=== PATIENT | male | born 1950 | race Caucasian/White ===

== ENCOUNTER → 2016-08-04 | Outpatient (CLI) | payer MEDICARE, OTHER ==
[2016-08-04 09:31] LABS: HEMATOCRIT 43.9 % (37.9-51.0); HEMOGLOBIN 14.5 g/dL (13.5-17.0); HGB HCT DIFFERENCE -0.4; MEAN CORPUSCULAR HEMOGLOBIN 30.6 pg (27.0-33.4); MEAN CORPUSCULAR HGB CONC 32.9 g/dL (32.0-36.0); MEAN CORPUSCULAR VOLUME 93 fl (80-97); RED BLOOD COUNT 4.73 10^6/uL (4.35-5.55); RED CELL DISTRIBUTION WIDTH 13.5 % (11.5-14.0); WHITE BLOOD COUNT 9.4 10^3/uL (4.0-10.5)
[2016-08-04 09:50] LABS: ANION GAP 13 (5-19); BLOOD UREA NITROGEN 17 mg/dL (7-20); CALCIUM 9.2 mg/dL (8.4-10.2); CARBON DIOXIDE 24 mmol/L (22-30); CHLORIDE 107 mmol/L (98-107); CREATININE RESULT 0.97 mg/dL (0.52-1.25); GLUCOSE 105 mg/dL (75-110); POTASSIUM 4.2 mmol/L (3.6-5.0); SODIUM 143.7 mmol/L (137-145)
--- NOTE | 2016-08-04 12:44 | EKG REPORT ---
SEVERITY:- NORMAL ECG - SINUS RHYTHM : Confirmed by: Laura Tejeda MD 04-Aug-2016 12:43:46
== END ==
LOC: OD 08:15
PROVIDERS: ATTEND Urology
DX: Z01.810 Encounter for preprocedural cardiovascular examination (principal); N40.1 Benign prostatic hyperplasia with lower urinary tract symptoms; N13.8 Other obstructive and reflux uropathy
CPT/HCPCS: 36415; 80048; 85027; 93005; 93010

== ENCOUNTER 2016-10-09 21:48 | Emergency (ER) | payer MEDICARE, OTHER ==
--- NOTE | 2016-10-09 22:50 | RADIOLOGY REPORT (SQ) ---
EXAM DESCRIPTION: FINGER LEFT COMPLETED DATE/TIME: 10/09/2016 10:36 pm REASON FOR STUDY: INJURY 4TH FINGER COMPARISON: None. NUMBER OF VIEWS: Three views. TECHNIQUE: AP, lateral, and oblique images acquired of the left fourth finger. LIMITATIONS: None. FINDINGS: MINERALIZATION: Normal. BONES: Mildly displaced fractures through the tuft of the distal phalanx 4th digit left hand. Bones otherwise intact. SOFT TISSUES: Soft tissue swelling. OTHER: No other significant finding. IMPRESSION: TUFT FRACTURE 4TH DIGIT LEFT HAND ABOVE. COMMENT: SITE OF TRAUMA/COMPLAINT MARKED/STAMP COMPLETED: YES. TECHNICAL DOCUMENTATION: JOB ID: [id number] [employer]- All Rights Reserved
--- NOTE | 2016-10-09 23:04 | ER Document Report ---
ED General - General Chief Complaint: Finger Injury Stated Complaint: SWOLLEN FINGER Time Seen by Provider: 10/09/16 22:20 Notes: Patient is a 65-year-old male who presents after he hit his left third finger 3 days ago with a hammer. Since that time he has had a dull, constant aching pain to the distal tip of this digit. He also notes swelling and ecchymosis. He has been applying ice with moderate improvement of the pain. Nothing worsens the pain other than touching the area. No history of similar injuries in the past. He has not seen his primary care doctor regarding today's concerns. Denies any additional injuries. TRAVEL OUTSIDE OF THE [place] IN LAST 30 DAYS: No - Related Data Allergies/Adverse Reactions: oxycodone [Oxycodone] Allergy (Verified 03/19/12 10:32) Past Medical History - General Information source: Patient - Social History Smoking Status: Never Smoker Frequency of alcohol use: None Drug Abuse: None Lives with: Spouse/Significant other Family History: Reviewed & Not Pertinent Patient has suicidal ideation: No Patient has homicidal ideation: No - Past Medical History Cardiac Medical History: Denies: Hx Coronary Artery Disease Pulmonary Medical History: Denies: Hx Tuberculosis Renal/ Medical History: Denies: Hx Peritoneal Dialysis GI Medical History: Reports: Hx Gastroesophageal Reflux Disease Musculoskeltal Medical History: Reports Hx Muscle Spasm - Immunizations Hx Diphtheria, Pertussis, Tetanus Vaccination: No Review of Systems - Review of Systems Notes: Constitutional: Negative for fever. Eyes: Negative for visual changes. ENT: Negative for facial injury Cardiovascular: Negative for chest injury. Respiratory: Negative for shortness of breath. Gastrointestinal: Negative for abdominal injury. Genitourinary: Negative for genital injury Musculoskeletal: Positive for left third finger injury Skin: Negative for laceration/abrasions. Neurological: Negative for head injury. Physical Exam - Vital signs Vitals: Temp Pulse Resp BP Pulse Ox 98.2 F 55 L 18 155/78 H 100 10/09/16 22:00 10/09/16 22:00 10/09/16 22:00 10/09/16 22:00 10/09/16 22:00 Interpretation: Bradycardic Notes: PHYSICAL EXAMINATION: GENERAL: Well-appearing, well-nourished and in no acute distress. HEAD: Atraumatic, normocephalic. EYES: sclera anicteric, conjunctiva are normal. ENT: Moist mucous membranes. NECK: Normal range of motion LUNGS: Normal work of breathing HEART: 2+ radial pulses bilaterally EXTREMITIES: no pitting or edema. No cyanosis. The distal aspect of the left third digit is swollen, ecchymosis over the volar pad and a subungual clotted hematoma. NEUROLOGICAL: No focal neurological deficits. Moves all extremities spontaneously and on command. PSYCH: Normal mood, normal affect. SKIN: Warm, Dry, normal turgor, no rashes or lesions noted. Course - Re-evaluation Re-evalutation: 10/09/16 23:04 Patient presents with swelling and ecchymosis to the distal left third finger. Full flexion and extension at the PIP, DIP, and MCP. Sensation intact. Capillary refill less than 3 seconds. X-ray does demonstrate a tuft fracture of this digit. No additional management indicated. At this time will discharge with return precautions and follow-up recommendations. Verbal discharge instructions given a the bedside and opportunity for questions given. Medication warnings reviewed. Patient is in agreement with this plan and has verbalized understanding of return precautions and the need for primary care follow-up in the next 24-72 hours. - Vital Signs Vital signs: Temp Pulse Resp BP Pulse Ox 98.5 F 57 L 18 133/90 H 97 10/09/16 23:10 10/09/16 23:10 10/09/16 22:00 10/09/16 23:10 10/09/16 23:10 - Diagnostic Test Radiology reviewed: Image reviewed, Reports reviewed Radiology results interpreted by me: 10/09/16 23:02 Left hand x-ray: Tuft fracture of the third digit Discharge - Discharge Clinical Impression: Closed fracture of tuft of distal phalanx of finger Condition: Good Disposition: HOME, SELF-CARE Additional Instructions: You have a very small fracture of your distal phalanx on the third finger of the left hand. This will heal on its own. Continue to ice the area. For your pain: Take ibuprofen 600 mg and acetaminophen 1000 mg every 6 hours together as needed for pain. Return for any additional concerns you may have.
[2016-10-09 23:15] VITALS: BP 133/90
== END 2016-10-09 23:12 | disposition home or self-care (01) ==
LOC: ER 21:48
DX: S62.633A Displaced fracture of distal phalanx of left middle finger, initial encounter for closed fracture (principal); S62.635A Displaced fracture of distal phalanx of left ring finger, initial encounter for closed fracture; W27.8XXA Contact with other nonpowered hand tool, initial encounter; Z88.5 Allergy status to narcotic agent
CPT/HCPCS: 99283

== ENCOUNTER 2018-08-29 13:38 | Emergency (ER) | payer MEDICARE ==
[2018-08-29] MEDS ORDERED: ONDANSETRON 4 MG TAB.RAPDIS PO ONE (14:12)
--- NOTE | 2018-08-29 14:14 | ER Document Report ---
ED Medical Screen (RME) - General Chief Complaint: Abdominal Pain Stated Complaint: ABDOMINAL PAIN Time Seen by Provider: 08/29/18 14:09 Mode of Arrival: Wheelchair Information source: Patient Notes: Patient presents today with complaints of right flank pain. Patient reports that started yesterday he has had some vomiting with it. Denies pain with void. Denies fever denies trauma. Reports history of back spasms but this does not feel the same. Patient reports the severe back pain is making him shaky and nauseated. Right flank nontender to palpate. I have greeted and performed a rapid initial assessment of this patient. A comprehensive ED assessment and evaluation of the patient, analysis of test results and completion of the medical decision making process will be conducted by additional ED providers. Dictation of this chart was performed using voice recognition software; therefore, there may be some unintended grammatical errors. TRAVEL OUTSIDE OF THE [place] IN LAST 30 DAYS: No - Related Data Allergies/Adverse Reactions: oxycodone [Oxycodone] Allergy (Verified 08/29/18 13:56) Past Medical History - Past Medical History Cardiac Medical History: Denies: Hx Coronary Artery Disease Pulmonary Medical History: Denies: Hx Tuberculosis Renal/ Medical History: Denies: Hx Peritoneal Dialysis GI Medical History: Reports: Hx Gastroesophageal Reflux Disease Musculoskeltal Medical History: Reports Hx Muscle Spasm - Immunizations Hx Diphtheria, Pertussis, Tetanus Vaccination: No Physical Exam - Vital signs Vitals: Temp Pulse Resp BP Pulse Ox 97.5 F 72 27 H 121/73 100 08/29/18 14:03 08/29/18 14:03 08/29/18 14:03 08/29/18 14:03 08/29/18 14:03 Course - Vital Signs Vital signs: Temp Pulse Resp BP Pulse Ox 97.5 F 72 27 H 121/73 100 08/29/18 14:03 08/29/18 14:03 08/29/18 14:03 08/29/18 14:03 08/29/18 14:03
[2018-08-29 14:51] LABS: AMORPHOUS SEDIMENT,URINE TRACE /HPF; APPEARANCE,URINE CLOUDY; BILIRUBIN,URINE NEGATIVE (NEGATIVE); COLOR,URINE YELLOW; GLUCOSE, URINE NEGATIVE (NEGATIVE); KETONES,URINE 20 mg/dL (NEGATIVE); LEUKOCYTE ESTERASE,URINE SMALL (NEGATIVE); NITRITE,URINE NEGATIVE (NEGATIVE); PROTEIN,URINE 100 mg/dL (NEGATIVE); URINE SPECIFIC GRAVITY 1.024; UROBILINOGEN,URINE NEGATIVE mg/dL (<2.0)
[2018-08-29 14:57] LABS: ABSOLUTE LYMPHOCYTES (AUTO) 3.3 10^3/uL (0.5-4.7); ABSOLUTE MONOCYTES (AUTO) 0.5 10^3/uL (0.1-1.4); ABSOLUTE NEUT (AUTO) 6.2 10^3/uL (1.7-8.2); BASOPHILS % (AUTO) 0.3 % (0-2); EOSINOPHILS % (AUTO) 0.3 % (0-6); HEMATOCRIT 44.5 % (37.9-51.0); HEMOGLOBIN 15.1 g/dL (13.5-17.0); LYMPHOCYTES % (AUTO) 33.2 % (13-45); MEAN CORPUSCULAR HEMOGLOBIN 30.7 pg (27.0-33.4); MEAN CORPUSCULAR HGB CONC 33.9 g/dL (32.0-36.0); MEAN CORPUSCULAR VOLUME 91 fl (80-97); PLATELET COUNT 185 10^3/uL (150-450); RED BLOOD COUNT 4.91 10^6/uL (4.35-5.55); RED CELL DISTRIBUTION WIDTH 13.5 % (11.5-14.0); SEGMENTED NEUTROPHILS % (AUTO) 61.2 % (42-78); TOTAL CELLS COUNTED % (AUTO) 100 %; WHITE BLOOD COUNT 10.1 10^3/uL (4.0-10.5)
[2018-08-29 15:14] LABS: ALANINE AMINOTRANSFERASE 35 U/L (21-72); ALBUMIN 4.9 g/dL (3.5-5.0); ALKALINE PHOSPHATASE 115 U/L (38-126); ANION GAP 12 (5-19); ASPARTATE AMINO TRANSFERASE 28 U/L (17-59); BILIRUBIN,DIRECT 0.3 mg/dL (0.0-0.4); BILIRUBIN,TOTAL 0.8 mg/dL (0.2-1.3); BLOOD UREA NITROGEN 23 mg/dL (7-20); CALCIUM 10.2 mg/dL (8.4-10.2); CARBON DIOXIDE 27 mmol/L (22-30); CHLORIDE 105 mmol/L (98-107); GLUCOSE 133 mg/dL (75-110); POTASSIUM 4.9 mmol/L (3.6-5.0); SODIUM 143.7 mmol/L (137-145)
--- NOTE | 2018-08-29 16:56 | RADIOLOGY REPORT (SQ) ---
EXAM DESCRIPTION: U/[employer] COMPLETED DATE/TIME: 08/29/2018 4:43 pm REASON FOR STUDY: right flank pain COMPARISON: None. TECHNIQUE: Dynamic and static grayscale images acquired of the kidneys and bladder and recorded on P ACS. Additional selected color Doppler and spectral images recorded. LIMITATIONS: None. FINDINGS: RIGHT KIDNEY: Normal size. Normal echogenicity. No solid or suspicious masses. No hydronep hrosis. No calcifications. LEFT KIDNEY: Normal size. 4.6 cm lower pole cyst. No solid or suspicious masses. No hydronephrosis. No calcifications. BLADDER: No masses. OTHER FINDINGS: No other significant finding. IMPRESSION: No hydronephrosis. TECHNICAL DOCUMENTATION: JOB ID: [id number] [place]-72 2010 [employer]- All Rights Reserved Reading location - IP/workstation name: [email or web address]
--- NOTE | 2018-08-29 17:25 | ER Document Report ---
ED General - General Chief Complaint: Abdominal Pain Stated Complaint: ABDOMINAL PAIN Time Seen by Provider: 08/29/18 14:09 Primary Care Provider: MINDY FAIRBANKS DO [Primary Care Provider] - Follow up as needed Mode of Arrival: Wheelchair TRAVEL OUTSIDE OF THE [place] IN LAST 30 DAYS: No - HPI Notes: Patient is a 67-year-old male that presents to the emergency department for chief complaint of right flank pain. Patient reports intermittent pain in his right flank over the last 2 to 3 days. He states that last for about 10 minutes and then completely resolves. He does have a history of back spasms but states this was more lateral than his typical spasming. He denies injury or trauma. Patient does not take pain medication at home stating he used to be on a lot of medicines and he weaned himself off of them. He denies any associated fevers or chills but did have one episode of emesis with associated nausea just prior to coming to the emergency room. Patient does report difficulty urinating and urinary frequency with a history of BPH. He denies dysuria. Past Medical History: BPH, GERD Past Surgical History: TURP Social History: Denies drug alcohol and tobacco use Family History: Reviewed and noncontributory for presenting illness Allergies: Reviewed, see documented allergy list. REVIEW OF SYSTEMS: CONSTITUTIONAL : No fever No chills No diaphoresis No recent illness EENT: No vision changes No congestion No sore throat CARDIOVASCULAR: No chest pain No palpitations RESPIRATORY: No shortness of breath No cough No difficulty breathing GASTROINTESTINAL: No abdominal pain nausea vomiting No diarrhea GENITOURINARY: No dysuria No hematuria difficulty urinating MUSCULOSKELETAL: back pain No leg pain No arm pain SKIN: No rashes No lesions LYMPHATIC: No swollen, enlarged glands. NEUROLOGICAL: No lightheadedness No headache No weakness No paresthesias PSYCHIATRIC: No anxiety No depression PHYSICAL EXAMINATION: Vital signs reviewed, nursing noted reviewed. GENERAL: Well-appearing, well-nourished and in no acute distress. HEAD: Atraumatic, normocephalic. EYES: Eyes appear normal, extraocular movements intact, sclera anicteric, conjunctiva are normal. ENT: nares patent, oropharynx clear without exudates. Moist mucous membranes. NECK: Normal range of motion, supple without lymphadenopathy LUNGS: Breath sounds clear to auscultation bilaterally and equal. No wheezes rales or rhonchi. HEART: Regular rate and rhythm without murmurs ABDOMEN: Soft, nontender, normoactive bowel sounds. No rebound, guarding, or rigidity. No masses appreciated. Back: No midline spinal tenderness. No paraspinal thoracic or lumbar spinal tenderness. No CVA tenderness bilaterally. EXTREMITIES: Nontender, good range of motion, no pitting or edema. NEUROLOGICAL: No focal neurological deficits. Moves all extremities spontaneously Motor and sensory grossly intact on exam. PSYCH: Normal mood, normal affect. SKIN: Warm, Dry, normal turgor, no rashes or lesions noted on exposed skin - Related Data Allergies/Adverse Reactions: oxycodone [Oxycodone] Allergy (Verified 08/29/18 13:56) Past Medical History - General Information source: Patient - Social History Smoking Status: Never Smoker Frequency of alcohol use: None Drug Abuse: None Family History: Reviewed & Not Pertinent Patient has suicidal ideation: No Patient has homicidal ideation: No - Past Medical History Cardiac Medical History: Denies: Hx Coronary Artery Disease Pulmonary Medical History: Denies: Hx Tuberculosis Renal/ Medical History: Denies: Hx Peritoneal Dialysis GI Medical History: Reports: Hx Gastroesophageal Reflux Disease Musculoskeletal Medical History: Reports Hx Muscle Spasm Past Surgical History: Reports: Hx Genitourinary Surgery - TURP - Immunizations Hx Diphtheria, Pertussis, Tetanus Vaccination: No Physical Exam - Vital signs Vitals: Temp Pulse Resp BP Pulse Ox 97.5 F 72 27 H 121/73 100 08/29/18 14:03 08/29/18 14:03 08/29/18 14:03 08/29/18 14:03 08/29/18 14:03 Course - Re-evaluation Re-evalutation: 08/29/18 17:23 Vitals reviewed. Nursing notes reviewed. Patient is well-appearing and currently asymptomatic. His lab work shows no significant renal insufficiency. He had a renal ultrasound which was unremarkable. Patient has a borderline urinary tract infection however with his history of BPH and difficulty with urination as well as flank pain he will be treated with Keflex. Urine culture has been ordered. Patient advised to follow closely with his PCP. He will take Tylenol at home as needed for pain. He will return for new or worsening symptoms including fever, ongoing vomiting or recurrence of pain. Patient in agreement with plan of care and asymptomatic at time of discharge. Laboratory 08/29/18 08/29/18 08/29/18 14:33 14:33 14:33 WBC 10.1 RBC 4.91 Hgb 15.1 Hct 44.5 MCV 91 MCH 30.7 MCHC 33.9 RDW 13.5 Plt Count 185 Seg Neutrophils % 61.2 Lymphocytes % 33.2 Monocytes % 5.0 Eosinophils % 0.3 Basophils % 0.3 Absolute Neutrophils 6.2 Absolute Lymphocytes 3.3 Absolute Monocytes 0.5 Absolute Eosinophils 0.0 Absolute Basophils 0.0 Sodium 143.7 Potassium 4.9 Chloride 105 Carbon Dioxide 27 Anion Gap 12 BUN 23 H Creatinine 1.06 Est GFR ( Amer) > 60 Est GFR (Non-Af Amer) > 60 Glucose 133 H Calcium 10.2 Total Bilirubin 0.8 Direct Bilirubin 0.3 Neonat Total Bilirubin Not Reportable Neonat Direct Bilirubin Not Reportable Neonat Indirect Bili Not Reportable AST 28 ALT 35 Alkaline Phosphatase 115 Total Protein 8.0 Albumin 4.9 Urine Color YELLOW Urine Appearance CLOUDY Urine pH 5.0 Ur Specific [place] 1.024 Urine Protein 100 H Urine Glucose (UA) NEGATIVE Urine Ketones 20 H Urine Blood NEGATIVE Urine Nitrite NEGATIVE Urine Bilirubin NEGATIVE Urine Urobilinogen NEGATIVE Ur Leukocyte Esterase SMALL H Urine WBC (Auto) 30 Urine RBC (Auto) 3 U Hyaline Cast (Auto) 1 Squamous Epi Cells Auto <1 Amorphous Sediment Auto TRACE Urine Mucus (Auto) MOD Urine Ascorbic Acid 40 H Renal Ultrasound 08/29/18 14:12 IMPRESSION: No hydronephrosis. - Vital Signs Vital signs: Temp Pulse Resp BP Pulse Ox 97.5 F 72 27 H 121/73 100 08/29/18 14:03 08/29/18 14:03 08/29/18 14:03 08/29/18 14:03 08/29/18 14:03 - Laboratory Result Diagrams: 08/29/18 14:33 08/29/18 14:33 Laboratory results interpreted by me: 08/29/18 08/29/18 14:33 14:33 BUN 23 H Glucose 133 H Urine Protein 100 H Urine Ketones 20 H Ur Leukocyte Esterase SMALL H Urine Ascorbic Acid 40 H Discharge - Discharge Clinical Impression: Right flank pain Urinary tract infection Qualifiers: Urinary tract infection type: acute cystitis Hematuria presence: without hematuria Qualified Code(s): N30.00 - Acute cystitis without hematuria Condition: Stable Disposition: HOME, SELF-CARE Instructions: Urinary Tract Infection ([facility]), Cephalexin ([facility]) Additional Instructions: Please return to the emergency department if you have any worsening, or concern of your symptoms. Please return to the emergency department if you develop chest pain, difficulty breathing, severe abdominal pain, or ongoing vomiting. Please follow-up with your primary care physician in 2-3 days and any other recommended physicians. If prescribed, take all medications as directed. If you have any questions or concerns do not hesitate to return the emergency department for evaluation. [] Prescriptions: Cephalexin Monohydrate [Keflex 500 mg Capsule] 500 mg PO Q6H 5 Days capsule Referrals: MINDY FAIRBANKS DO [Primary Care Provider] - Follow up in 3-5 days
[2018-08-29 17:53] VITALS: BP 145/77
== END 2018-08-29 17:50 | disposition home or self-care (01) ==
LOC: ER 13:38
DX: N30.00 Acute cystitis without hematuria (principal); R10.9 Unspecified abdominal pain; Z88.6 Allergy status to analgesic agent
CPT/HCPCS: 99284; 36415; 85025; 80053; 81001; 76775; A9270; S0119

== ENCOUNTER 2018-12-10 20:13 | Emergency (ER) | payer MEDICARE, OTHER ==
[2018-12-10] MEDS ORDERED: DIPH/PERTUSS(ACELL)/TETANUS VAC/PF 0.5 ML SYR (>=10YO) IM ONE (20:40)
--- NOTE | 2018-12-10 20:42 | ER Document Report ---
ED Medical Screen (RME) - General Stated Complaint: PUNCTURED WOUND Time Seen by Provider: 12/10/18 20:39 Primary Care Provider: MINDY FAIRBANKS DO [Primary Care Provider] - Follow up as needed Information source: Patient Notes: Patient [place] in [place], tripped and fell on a branch. Patient with puncture wound laceration to left hand. Patient's tetanus immunization is not currently up-to-date. I have greeted and performed a rapid initial assessment of this patient. A comprehensive ED assessment and evaluation of the patient, analysis of test results and completion of the medical decision making process will be conducted by additional ED providers. TRAVEL OUTSIDE OF THE [place] IN LAST 30 DAYS: No - Related Data Allergies/Adverse Reactions: oxycodone [Oxycodone] Allergy (Verified 08/29/18 13:56) Past Medical History - Past Medical History Cardiac Medical History: Denies: Hx Coronary Artery Disease Pulmonary Medical History: Denies: Hx Tuberculosis Renal/ Medical History: Denies: Hx Peritoneal Dialysis GI Medical History: Reports: Hx Gastroesophageal Reflux Disease Musculoskeltal Medical History: Reports Hx Muscle Spasm Past Surgical History: Reports: Hx Genitourinary Surgery - TURP - Immunizations Hx Diphtheria, Pertussis, Tetanus Vaccination: No Physical Exam - Vital signs Vitals: Temp Pulse Resp BP Pulse Ox 98.2 F 61 18 170/84 H 99 12/10/18 20:26 12/10/18 20:26 12/10/18 20:26 12/10/18 20:26 12/10/18 20:26 - Skin Skin irregularity: Laceration - laceration to the Palmar surface base of the left thumb Course - Vital Signs Vital signs: Temp Pulse Resp BP Pulse Ox 98.2 F 61 18 170/84 H 99 12/10/18 20:26 12/10/18 20:26 12/10/18 20:26 12/10/18 20:26 12/10/18 20:26 Doctor's Discharge - Discharge Referrals: MINDY FAIRBANKS DO [Primary Care Provider] - Follow up as needed
[2018-12-10] MEDS ORDERED: ACETAMINOPHEN 325 MG TABLET PO ONE (21:05)
--- NOTE | 2018-12-10 21:21 | RADIOLOGY REPORT (SQ) ---
EXAM DESCRIPTION: XR HAND 3 OR MORE VIEWS COMPLETED DATE/TME: 12/10/2018 20:41 CLINICAL HISTORY: 67 years, Male, fall, lac COMPARISON: None. NUMBER OF VIEWS: TECHNIQUE: LIMITATIONS: None. FINDINGS: 3 views of the left hand were obtained. There is air in the soft tissues of the palm, secondary to the patient's laceration. No fracture or dislocation. No evidence of radiopaque foreign body within the soft tissues. Mineralization of bone appears normal. IMPRESSION: Soft tissue air in the palm, secondary to the patient's laceration. No fracture or radiopaque foreign body. copyright 2010 [email or web address]- All Rights Reserved
[2018-12-10] MEDS ORDERED: LIDOCAINE 0.5%/EPINEPHRINE INJ 50 ML VIAL INJ ONE (21:33)
--- NOTE | 2018-12-10 22:41 | ER Document Report ---
ED Wound - General Chief Complaint: Puncture Wound Stated Complaint: PUNCTURED WOUND Time Seen by Provider: 12/10/18 20:39 Primary Care Provider: MINDY FAIRBANKS DO [Primary Care Provider] - Follow up as needed Notes: Patient is a 67-year-old male presents to the emergency department with a laceration to his left thenar eminence. Patient voices he was out hunting. States he accidentally tripped and fell on a stump injuring his left hand. Patient voices he did not pull out any splinters or wood fragments from the wound. States he did sustained the laceration which is why he presents to the emergency room. Patient voices he is unsure of his last tetanus immunization. Patient takes no blood thinners. TRAVEL OUTSIDE OF THE [place] IN LAST 30 DAYS: No - Related Data Allergies/Adverse Reactions: oxycodone [Oxycodone] Allergy (Verified 08/29/18 13:56) Home Medications: Nexium. B12. Prostate meds Past Medical History - General Information source: Patient - Social History Smoking Status: Never Smoker Chew tobacco use (# tins/day): No Frequency of alcohol use: None Drug Abuse: None Family History: Reviewed & Not Pertinent Patient has suicidal ideation: No Patient has homicidal ideation: No - Past Medical History Cardiac Medical History: Denies: Hx Coronary Artery Disease Pulmonary Medical History: Denies: Hx Tuberculosis Renal/ Medical History: Denies: Hx Peritoneal Dialysis GI Medical History: Reports: Hx Gastroesophageal Reflux Disease Musculoskeletal Medical History: Reports Hx Muscle Spasm Past Surgical History: Reports: Hx Genitourinary Surgery - TURP - Immunizations Hx Diphtheria, Pertussis, Tetanus Vaccination: No Review of Systems - Review of Systems Constitutional: denies: Fever EENT: No symptoms reported Cardiovascular: No symptoms reported Respiratory: No symptoms reported Gastrointestinal: No symptoms reported Genitourinary: No symptoms reported Male Genitourinary: No symptoms reported Musculoskeletal: No symptoms reported Skin: See HPI Hematologic/Lymphatic: No symptoms reported Neurological/Psychological: No symptoms reported Physical Exam - Vital signs Vitals: Temp Pulse Resp BP 98.2 F 60 18 170/84 H 12/10/18 20:25 12/10/18 20:25 12/10/18 20:25 12/10/18 20:25 - Notes Notes: GENERAL: Alert, interacts well. No acute distress. HEAD: Normocephalic, atraumatic. EYES: Pupils equal, round, and reactive to light. Extraocular movements intact. ENT: Oral mucosa moist, tongue midline. NECK: Full range of motion. Supple. Trachea midline. LUNGS: Clear to auscultation bilaterally, no wheezes, rales, or rhonchi. No respiratory distress. HEART: Regular rate and rhythm. No murmur ABDOMEN: Soft, non-tender. Non-distended. Bowel sounds present in all 4 quadrants. EXTREMITIES: Moves all 4 extremities spontaneously. No edema, normal radial and dorsalis pedis pulses bilaterally. No cyanosis. Patient has full range of motion left thumb MCP joint. Patient can flex and extend all fingers on the left hand, BACK: no cervical, thoracic, lumbar midline tenderness. No saddle anesthesia, normal distal neurovascular exam. NEUROLOGICAL: Alert and oriented x3. Normal speech. cranial nerves II through XII grossly intact PSYCH: Normal affect, normal mood. SKIN: Warm, dry, normal turgor. U-shaped laceration noted left anterior thenar eminence. Course - Re-evaluation Re-evalutation: 12/10/18 22:38 Hand X-Ray 12/10/18 20:41 IMPRESSION: Soft tissue air in the palm, secondary to the patient's laceration. No fracture or radiopaque foreign body. copyright 2010 [employer]- All Rights Reserved Patient's wound was numbed, irrigated extensively with over thousand cc of normal saline solution. No foreign body seen. Loosely sutured wound and disc ussed with patient should there be a retained foreign body he does need to follow-up with his primary care provider or orthopedics. Phone numbers will be provided. Discussed at length with patient signs and symptoms of wound infections and when to return to the emergency room. Patient stable for discharge. - Vital Signs Vital signs: Temp Pulse Resp BP Pulse Ox 97.8 F 59 L 14 145/77 H 99 12/10/18 22:58 12/10/18 22:58 12/10/18 22:58 12/10/18 22:58 12/10/18 22:58 Procedures - Laceration/Wound Repair Left hand Wound length (cm): 3 Wound's Depth, Shape: Superficial, Flap Laceration pre-procedure: Sterile PPE donned, Betadine prep applied, Sterile drapes applied, Shur-Clens applied Anesthetic type: 1% Lidocaine w/epi Volume Anesthetic (mLs): 5 Wound explored: Clean, No foreign body removed Irrigated w/ Saline (mLs): 1,000 Wound Debrided: Extensive Wound Repaired With: Sutures Suture Size/Type: 4:0, Ethilon Number of Sutures: 3 Post-procedure wound care: Sterile dressing applied Post-procedure NV exam normal: Yes Complications: No Discharge - Discharge Clinical Impression: Hand laceration Qualifiers: Encounter type: initial encounter Foreign body presence: unspecified Laterality: left Qualified Code(s): S61.412A - Laceration without foreign body of left hand, initial encounter Condition: Stable Disposition: HOME, SELF-CARE Instructions: Antibiotic Ointment Protection ([facility]), Laceration Care ([facility]), Soap Cleansing ([facility]), Tetanus Immunization Given ([facility]) Additional Instructions: As we discussed you have been seen and treated in the emergency department for a laceration to your left hand. Please know that these sutures do need to be rem arik in the next 10 to 14 days. Please keep the wound clean and dry. Please also follow-up with your primary care provider for continued evaluation of the wound. Please return to the emergency department should you see any signs or symptoms of infection. Please also return to the emergency room for any other concerns. Referrals: MINDY FAIRBANKS DO [Primary Care Provider] - Follow up as needed NANCY ARELLANO DO [ACTIVE STAFF] - Follow up as needed
[2018-12-10 23:06] VITALS: BP 145/77
== END 2018-12-10 23:06 | disposition home or self-care (01) ==
LOC: ER 20:13
PROC: 0HQGXZZ Repair Left Hand Skin, External Approach (ICD-10-PCS; principal; 2018-12-10)
DX: S61.412A Laceration without foreign body of left hand, initial encounter (principal); W01.118A Fall on same level from slipping, tripping and stumbling with subsequent striking against other sharp object, initial encounter
CPT/HCPCS: 99283; 90471; 73130; 90715; 12002; A9270; J3490

== ENCOUNTER 2019-11-18 08:59 | Emergency (ER) | payer MEDICARE, OTHER ==
[2019-11-18] MEDS ORDERED: ASPIRIN 325 MG TABLET PO ONE (10:22)
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
--- NOTE | 2019-11-18 11:07 | RADIOLOGY REPORT (SQ) ---
EXAM DESCRIPTION: CHEST SINGLE VIEW IMAGES COMPLETED DATE/TIME: 11/18/2019 10:48 am REASON FOR STUDY: 31; mid back pain COMPARISON: None. EXAM PARAMETERS: NUMBER OF VIEWS: One view. TECHNIQUE: Single frontal radiographic view of the chest acquired. RADIATION DOSE: NA LIMITATIONS: None. FINDINGS: LUNGS AND PLEURA: No opacities, masses or pneumothorax. No pleural effusion. MEDIASTINUM AND HILAR STRUCTURES: No masses. Contour normal. HEART AND VASCULAR STRUCTURES: Heart normal in size. Normal vasculature. BONES: No acute findings. HARDWARE: None in the chest. OTHER: No other significant finding. IMPRESSION: NO ACUTE RADIOGRAPHIC FINDING IN THE CHEST. TECHNICAL DOCUMENTATION: JOB ID: [id number] 2010 [email or web address]- All Rights Reserved Reading location - IP/workstation name: [email or web address]
[2019-11-18 11:34] LABS: ABSOLUTE EOSINOPHILS # (AUTO) 0.2 10^3/uL (0.0-0.6); ABSOLUTE LYMPHOCYTES (AUTO) 3.2 10^3/uL (0.5-4.7); ABSOLUTE MONOCYTES (AUTO) 0.6 10^3/uL (0.1-1.4); ABSOLUTE NEUT (AUTO) 2.5 10^3/uL (1.7-8.2); BASOPHILS % (AUTO) 0.5 % (0-2); EOSINOPHILS % (AUTO) 3.2 % (0-6); HEMATOCRIT 42.7 % (37.9-51.0); HEMOGLOBIN 15.1 g/dL (13.5-17.0); LYMPHOCYTES % (AUTO) 48.8 % (13-45); MEAN CORPUSCULAR HEMOGLOBIN 32.4 pg (27.0-33.4); MEAN CORPUSCULAR HGB CONC 35.3 g/dL (32.0-36.0); MEAN CORPUSCULAR VOLUME 92 fl (80-97); MONOCYTES % (AUTO) 8.6 % (3-13); PLATELET COUNT 160 10^3/uL (150-450); RED BLOOD COUNT 4.65 10^6/uL (4.35-5.55); RED CELL DISTRIBUTION WIDTH 13.4 % (11.5-14.0); SEGMENTED NEUTROPHILS % (AUTO) 38.9 % (42-78); TOTAL CELLS COUNTED % (AUTO) 100 %; WHITE BLOOD COUNT 6.5 10^3/uL (4.0-10.5)
[2019-11-18 11:50] LABS: ANION GAP 9 (5-19); BLOOD UREA NITROGEN 26 mg/dL (7-20); CALCIUM 10.1 mg/dL (8.4-10.2); CARBON DIOXIDE 28 mmol/L (22-30); CHLORIDE 106 mmol/L (98-107); GLUCOSE 119 mg/dL (75-110); POTASSIUM 4.7 mmol/L (3.6-5.0)
--- NOTE | 2019-11-18 12:19 | EKG REPORT ---
SEVERITY:- NORMAL ECG - SINUS BRADYCARDIA : Confirmed by: Dago Merritt MD 18-Nov-2019 12:18:36
[2019-11-18 13:56] VITALS: BP 148/69
== END 2019-11-18 13:57 | disposition home or self-care (01) ==
LOC: ER 08:59
DX: M54.6 Pain in thoracic spine (principal); R05 Cough; K21.9 Gastro-esophageal reflux disease without esophagitis; Z79.899 Other long term (current) drug therapy; Z88.6 Allergy status to analgesic agent; Z88.5 Allergy status to narcotic agent
CPT/HCPCS: 93005; 99285; 36415; 85025; 80048; 84484; 71045; 93010; A9270